=== PATIENT | female | born 1995 | race Caucasian/White ===

== ENCOUNTER 2022-12-28 09:35 | Outpatient (CLI) | payer BC, SELFPAY | END 2022-12-28 09:36 | disposition home or self-care (01) | PROVIDERS: PCP Family Medicine; Visit Provider Obstetrics & Gynecology | DX: O16.2 Unspecified maternal hypertension, second trimester (principal); Z3A.24 24 weeks gestation of pregnancy | CPT/HCPCS: 82565; 82570; 84156; 84450; 84460; 84520 ==

== ENCOUNTER 2023-02-22 12:18 | Outpatient (CLI) | payer BC, SELFPAY ==
--- NOTE | 2023-02-22 12:15 | CRLHL7_ITS ---
For Patients: As a result of the Century Cures Act, medical imaging exams and procedure reports are released immediately into your electronic medical record. You may view this report before your referring provider. If you have questions, please contact your health care provider. INDICATION: OBESITY, UNSPECIFIED MATERNAL HYPERTENSION TECHNIQUE: Real time sepulveda scale imaging of the fetus was performed. COMPARISON: 09/13/2022 FINDINGS: Sonographic imaging demonstrates a single living intrauterine gestation. Fetus demonstrates a regular cardiac rate of 149 beats per minute. Fetus has a vertex position. The placenta lies anteriorly. Amniotic fluid volume appears normal and there is a single deepest pocket of 4.0 cm. The estimated weight is 2117gm which lies at the 52nd %. BPD 75th percentile. HC 45th percentile. AC 44th percentile. FL 62nd percentile. The fetus was active and demonstrated normal breathing movements. There was normal flexion and extension of the trunk and extremities. IMPRESSION: Normal biophysical profile score 8/8. Sonographic gestational age 33 weeks 4 days and sonographic due date 04/08/2023. Sonographic age 6 days ahead of the clinical age. Estimated weight 52nd percentile. Abdominal circumference 44th percentile. Dictated by Dudley Gomez MD @ 02/22/2023 1:00:54 PM (Electronically Signed)
== END 2023-02-22 12:19 | disposition home or self-care (01) ==
LOC: US 12:19
PROVIDERS: PCP Family Medicine; Visit Provider Obstetrics & Gynecology
DX: O99.213 Obesity complicating pregnancy, third trimester (principal); O16.3 Unspecified maternal hypertension, third trimester; Z3A.33 33 weeks gestation of pregnancy
CPT/HCPCS: 76816; 76819

== ENCOUNTER 2023-03-17 09:19 | Outpatient (CLI) | payer BC, SELFPAY | END 2023-03-17 09:20 | disposition home or self-care (01) | LOC: NFLDREF 03-19 06:44 | PROVIDERS: PCP Family Medicine; Referring Provider Family Medicine; Visit Provider Advanced Practice Midwife | DX: O99.213 Obesity complicating pregnancy, third trimester (principal); Z3A.36 36 weeks gestation of pregnancy | CPT/HCPCS: 87081; 87653 ==

== ENCOUNTER 2023-03-23 16:31 | Inpatient (IN) | payer BC, SELFPAY ==
[2023-03-23 17:10] VITALS: BMI 53.0
[2023-03-23 17:14] LABS: Basophils Percent Auto 0.2 % (0.0-3.0); Eosinophils Percent Auto 1.4 % (0.0-7.0); Hematocrit 33.8 % (33.0-51.0); Hemoglobin* 10.9 gm/dL (12.0-16.0); Immature Granulocytes Pct Auto 0.3 %; Lymphocytes Percent Auto 15.2 % (20-44); Mean Corpuscular HGB Conc 32 gm/dL (32-36); Mean Corpuscular Hemoglobin 28 pg (26-34); Mean Corpuscular Volume 86 fL (80-100); Monocytes Percent Auto 6.2 % (0.0-11.0); Neutrophils Percent Auto 76.7 % (42.0-72.0); Platelet Count* 426 K/uL (140-440); RDW Coefficient of Variation % 14.1 % (11.5-15.5); Red Blood Count 3.93 m/uL (4.00-5.20)
[2023-03-23 17:17] VITALS: BP 123/67; PULSE 88; RESP 18; TEMP 37.2; O2SAT 99
[2023-03-23 17:20] VITALS: BP 123/67; PULSE 88
[2023-03-23 17:21] VITALS: PULSE 86; O2SAT 99
--- NOTE | 2023-03-23 17:47 | P.LDBA_ITS ---
Subjective History of Present Illness Time Seen by Provider: 17:47 Date Seen: 03/23/23 Narrative: HPI: Lizzie is a 27-year-old 1 para 0 at 36 and 6/7weeks gestation being admitted for induction of labor due to chronic hypertension with gestational exacerbation and oligohydramnios. Her admission history and physical was completed by Joslyn Stout MD on 03/23/2023. Her course has been complicated, see OB problem list. Her membranes are not ruptured. She reports no painful contractions. The baby has has been moving normally. OB PROBLEM LIST: XAVIER 04/14/23 by LMP c/w 1st trimester USN Spouse: Gerry. Son: Christopher. Baby: Girl! Misty (eye-rosalino) Transfer of care at 19 5/7 weeks gestation from [facility]. Records reviewed. * labs: Blood type A positive, antibody screen negative, Hgb 12.2, plts 425, rubella immune, RPR negative, HBsAg negative, HIV nonreactive, GC/chlamydia neg/neg, hep C negative, TSH 1.9, varicella zoster nonimmune, pap NIL, -HPV. * Ultrasound: 09/13/2022, 9 3/7 weeks, XAVIER 04/15/2023 (LMP EDC 04/14/2023) 1. Obesity (pre- BMI 53 kg/m2) * A1C: 5.1 * Early glucose screen: 129 * 28-week glucose screen: 126 (01/25/23) * Level 2 US and echo: 12/06/[facility], normal. Recommends growth ultrasound between 28 and 34 weeks gestation, and begin weekly testing at 34 weeks gestation. * Weekly BPP or NST beginning at 32 weeks: scheduled * Growth US between 32 and 36 weeks: Scheduled * Anesthesia consult: ordered 2. Scoliosis, s/p spine fusion (thoracic and upper lumbar) - told previously the fusion level is above level for epidural/spinal * Anesthesia consult: ordered, patient encouraged to get previous notes, films. Still waiting on records as of 03/17/23. 3. Elevated blood pressure in second trimester * Vital signs reviewed from previous records: 125/80, 120/80, 125/80. * [facility] labs obtained 12/28/2022: Platelets 374, BUN 4, creatinine 0.4, AST 42, ALT 21, urine P/C 0.0 * Begin daily home blood pressure monitoring * Repeat AST with 28-week labs: 17 (normal) * 03/23/2023: BPP 8/8, Vtx, SDP 2.5cm HORACIO 4.7cm. EFW: 2980 g, 6 lb 9 oz, 48%. BPD 42%, HC 34%, AC 68%, FL 18% * Patient sent for cervical ripening on 03/23/2023 followed by induction of labor on 03/24/2023 due to oligohydramnios and either gestational hypertension versus chronic hypertension with mildly elevated systolic blood pressure on 03/23/2023. She meets criteria for gestational hypertension. OBJECTIVE: GENERAL: Pleasant, , well groomed woman in no acute distress. VITAL SIGNS: Per electronic medical record: They are normal. HEART: Regular rate and rhythm without gallop, rub or murmur. CHEST: Clear to auscultation bilaterally. ABDOMEN: Gravid, nontender. EFM: Baseline 140 s, accelerations present, decelerations absent, moderate variability, reactive. Category 1 TOCO: Q 2-5 minutes, the patient is not feeling them. SVE: 1 cm/50 %/-3/mid/soft. Waldrop score 5. EXTREMITIES: No edema, cyanosis, clubbing or pain. ASSESSMENT: 27-year-old 1 para 0 at 36 and 6/7 weeks gestation admitted for induction of labor.. PLAN: 1. Cytotec 25 mcg vaginally every 3 hours, 5 doses. Followed by IV Pitocin per induction protocol. 2. AROM when able 3. GBS negative 4. Unsure if she wants anything for labor analgesia. 5. Blood type A+ 6. Serum preeclampsia labs: CBC w/o diff, AST, ALT, Creatinine, BUN. Urine P/C. 7. Dr. Yessica Oliveira will assume care at 7am on 03/24/2023. OB Exam Physical Exam Vital signs: Temp Pulse Resp BP Pulse Ox 99 F 88 18 123/67 99 03/23/23 17:17 03/23/23 17:20 03/23/23 17:17 03/23/23 17:20 03/23/23 17:21
[2023-03-23 18:00] LABS: Alanine Aminotransferase* 26 U/L (4-35); Aspartate Amino Transferase* 23 U/L (12-35); Blood Urea Nitrogen* 12 mg/dL (5-24); Creatinine* 0.4 mg/dL (0.5-1.5); Estimated Glomerular Filt Rate 140 ml/min
[2023-03-23 18:18] LABS: Slide Review Reflex No
[2023-03-23] MEDS: miSOPROStoL 25 MCG/0.25 TABLET VAGINAL ×2 (18:25→21:45)
[2023-03-23 21:34] VITALS: BP 126/61; PULSE 80; RESP 16; TEMP 37.1
[2023-03-23 21:35] VITALS: PULSE 86; O2SAT 98
[2023-03-23 22:16] LABS: Total Protein Urine 9 mg/dL
[2023-03-23 22:17] LABS: Creatinine Urine 123.2 mg/dL
[2023-03-23 22:56] VITALS: BP 128/67; PULSE 74; TEMP 37.1
[2023-03-24] VITALS (20 sets, daily range): BP systolic 104–148; BP diastolic 56–84; PULSE 62–85; RESP 16–18; TEMP 36.4–37.2; O2SAT 96–99
[2023-03-24] MEDS: miSOPROStoL 25 MCG/0.25 TABLET VAGINAL ×2 (01:56→04:59)
--- NOTE | 2023-03-24 08:27 | P.OBPN_ITS ---
Subjective Time Seen by Provider: 08:00 Date Seen: 03/24/23 Narrative: Doing well Objective Vital Signs: Last Vital Signs Temp 98.3 F 03/24/23 07:18 Pulse 75 03/24/23 07:18 Resp 18 03/24/23 07:18 BP 133/63 03/24/23 07:18 Pulse Ox 97 03/24/23 07:18 Pelvic Exam Dilation (cm): 3 Effacement (%): 75 Station: -1 Contractions Monitor mode: External Contraction pattern: Regular Contraction intensity: Moderate Assessment Assessment: induction ongoing Station: -1 Amniotic Membrane Status: SROM Status: Category l Heart Rate Baseline: 140 Penitentiary Variability: Moderate (6-25) Monitor Accelerations: Present Monitor Decelerations: Variable Maternal Status: Stable Plan Plan: 1. IOL ongoing, she is 3cm and with cervical check she SROM. Regular uterine contractions IV oxytocin has not been started, will recheck in about 4 hours if no significant progress will recommend Oxytocin. 2. NST category 1, sporadic variables, difficulty keeping patient on telemetry as she would like to ambulate, will continue trying. Needs continuous monitoring in the setting of hypertension. 3. CHTN, gestational exacerbation, blood pressures elevated but not on severity range. PreE labs upon admission normal. Will continue close monitoring. 4. GBS negative no need for antibiotic prophylaxis. 5. Patient would like to try unmedicated labor.
[2023-03-24] MEDS: LACTATED RINGERS 1000 ML 1,000 ML 999 ML IV ×2 (09:42→11:00)
[2023-03-24] MEDS: OXYTOCIN 30 unit/500 ML in NS 30 UNIT/500 ML BAG IVPB (14:20)
--- NOTE | 2023-03-24 16:48 | P.OBPN_ITS ---
Subjective Time Seen by Provider: 14:00 Date Seen: 03/24/23 Narrative: Okay, feeling contractions getting stronger. Objective Vital Signs: Last Vital Signs Temp 97.5 F L 03/24/23 16:42 Pulse 75 03/24/23 16:42 Resp 16 03/24/23 16:42 BP 137/75 03/24/23 16:42 Pulse Ox 99 03/24/23 11:39 Pelvic Exam Dilation (cm): 6-7 Effacement (%): 90 Station: -1,0 Contractions Monitor mode: Internal Contraction pattern: Regular Contraction intensity: Moderate Pitocin Rate (mU/min): 2 Assessment Assessment: induction ongoing Station: -1 Amniotic Membrane Status: SROM Status: Category ll Heart Rate Baseline: 140 Residential Variability: Moderate (6-25) Monitor Accelerations: Present Monitor Decelerations: Variable (some happen after the peak of the contraction, has had episodes of evident late decelerations but these improve with fluids and position changes. ) Maternal Status: Stable Plan Plan: Will continue IV Oxytocin judiciously in the setting of episodes of late decelerations, variables that are happening after the peak of the contraction. Labor has been progressing well, we were not able to start IV Oxytocin until 2pm today due to tracing concerns, but has always maintained moderate variability and accelerations and has responded to interventions. Will follow up closely.
[2023-03-24] MEDS: OXYTOCIN 30 unit/500 ML in NS 30 UNIT/500 ML BAG 300 UNIT IVPB (18:03)
[2023-03-24] MEDS: LIDOCAINE 1 % PF 30 ML INJECTION (18:08)
--- NOTE | 2023-03-24 18:30 | W.PM.OBVAGDE ---
OB Procedure Vag Delivery Mother Details Mother Details: The patient is a 27 year-old, 2, Para 1, admitted on 03/23/23 at 36 6/7 weeks gestation for IOL in the setting of CHTN with gestational exacerbation. IOL started per Cytotec protocol, SROM this morning during cervical check, then started IV oxytocin, due to maternal body habitus internal monitors were utilized, tracing concerning during certain points due to late decelerations that resolved with position changes and hydration. Blood pressures remained controlled during laboring process. : 2 Para: 1 Weeks Gestation: 37 Admission Date: 03/23/23 Additional Details Amniotic Membrane Status: SROM Amniotic Membrane Rupture Date: 03/24/23 Amniotic Membrane Rupture Time: 08:00 Amniotic Membrane Fluid Description: Clear Analgesia/Anesthesia Type: Nitrous Oxide Waterbirth: No Pitcoin: Yes Intrapartal Events: Labor Induction Induction Method: per misoprostol protocol and per pitocin protocol Delivery augmentation: pitocin Labor Onset: 16:00 Complete: 17:51 Pushin:58 Heart: heart tones during second stage were category 2. Had a deep variable, nurse checked cervix found her 9cm and right after this time patient started involuntarily pushing and rapid descent of baby noted with a deep deceleration and head was noted to be and with the next push delivered baby. Delivery Details Delivery Date: 03/24/23 Delivery Time: 18:01 Route of delivery: Gender: Female Infant Viability: Alive; Heart Rate Present Position at Delivery: OA Delivery Details: Delivered over intact perineum via spontaneous vaginal delivery. was placed on maternal abdomen.? Cord was clamped and cut after a 30-60 second delay. Nose and mouth were bulb suctioned.? weight pending. 1 Minute Interval Total Score: 8 5 Minute Interval Total Score: 9 Additional Details Shoulder Dystocia: No Placenta Delivery Time: 18:04 Placental Delivery Description: Spontaneous Delivery repair: Vicryl Procedure Done: Global Blood Loss: 100 Laceration: Perineal - 2nd Degree Episiotomy Description: None Blood Loss Measurement Type: QBL Bakri Used: No Sponge/Need Count Correct: Yes Cord Vessel Description: 3 Vessels Event Summary Status: Mother and were stable after delivery.
[2023-03-25 05:20] VITALS: BP 136/78; PULSE 75; RESP 16; TEMP 36.6; O2SAT 98
[2023-03-25 07:27] LABS: Hemoglobin* 10.4 gm/dL (12.0-16.0)
[2023-03-25 09:59] VITALS: BP 127/82; PULSE 80; RESP 16; O2SAT 98
[2023-03-25] MEDS: DOCUSATE SODIUM 100 MG CAPSULE PO (09:59)
--- NOTE | 2023-03-25 10:22 | PM.OBPNVD1 ---
OB - PN:Subj Subjective Date Seen: 03/25/23 Interval history: The patient is a 27 year-old, 2, now Para 2001, admitted on 03/23/23 at 36 6/7 weeks gestation for IOL in the setting of CHTN with gestational exacerbation. IOL started per Cytotec protocol, SROM, then IV oxytocin. She proceeded to a normal spontaneous vaginal delivery of a viable female . She needed repair of a 2nd degree perineal laceration with the delivery. Patient comments OB post-: no complaints status: OB - PN: Obj Exam Physical Exam: Vital signs: Temp Pulse Resp BP Pulse Ox O2 Del Method 97.9 F 80 16 127/82 98 Room Air 03/25/23 05:20 03/25/23 09:59 03/25/23 09:59 03/25/23 09:59 03/25/23 09:59 03/25/23 09:59 Constitutional: Constitutional: no acute distress and cooperative Routine Respiratory Exam: Respiratory: Present CTA bilaterally Routine Cardiovascular Exam: Cardiovascular: Present RRR Routine Abdominal Exam: Abdominal: Present soft; Absent tenderness Fundus: Present firm Routine Extremities Exam: Extremities: Present full ROM and normal inspection; Absent calf tenderness Routine Neurological Exam: Neurological: Present alert and oriented X3 Routine Psychiatric Exam: Psychiatric: Present normal affect OB - PN: Obj Data Labs Labs: Laboratory Results - last 24 hr 03/25/23 07:14 Hgb 10.4 L OB - PN: A/P Delivery Assessment and Plan (1) Status post normal vaginal delivery: Status: Acute Plan day: 1 Plan: routine care
[2023-03-25 14:15] VITALS: BP 119/80; PULSE 89; RESP 16; TEMP 36.4; O2SAT 98
[2023-03-25 17:38] VITALS: BP 133/97; PULSE 73; RESP 18; TEMP 36.6; O2SAT 97
[2023-03-25 20:00] VITALS: BP 124/84; PULSE 82; RESP 18; TEMP 36.7; O2SAT 97
[2023-03-26 00:47] VITALS: BP 120/85; PULSE 74; RESP 18; TEMP 36.6; O2SAT 97
[2023-03-26 04:05] VITALS: BP 134/83; PULSE 78; RESP 18; O2SAT 100
[2023-03-26 08:00] VITALS: BP 136/82; PULSE 86; RESP 18; TEMP 36.6; O2SAT 98
--- NOTE | 2023-03-26 09:43 | P.DS_ITS ---
DS: Providers Provider Date Seen: 03/26/23 Date of admission: 03/23/23 16:31 Primary care physician: Svetlana Jimenez MD Admitting Clinician: Yessica Torres MD Attending Physician on discharge: Mely Quijano MD Date of Discharge: 03/26/23 DS: Diagnosis Discharge Diagnosis (1) Status post normal vaginal delivery: Status: Acute Exam Const: Vital Signs, click to edit/add: Vital Signs - 24 hr 03/25/23 09:59 03/25/23 14:15 03/25/23 17:38 Temperature 97.5 F L 98 F Pulse Rate [Pulse Oximeter] 80 89 73 Respiratory Rate 16 16 18 Blood Pressure [Le ft Arm] 127/82 119/80 133/97 H Pulse Oximetry 98 98 97 Oxygen Delivery Me thod Room Air Room Air 03/25/23 20:00 03/26/23 00:47 03/26/23 04:05 Temperature 98.0 F 97.9 F Pulse Rate [Pulse Oximeter] 82 74 78 Respiratory Rate 18 18 18 Blood Pressure [Le ft Arm] 124/84 120/85 134/83 Pulse Oximetry 97 97 100 Oxygen Delivery Me thod Room Air Room Air Room Air 03/26/23 08:00 Temperature 98 F Pulse Rate [Pulse Oximeter] 86 Respiratory Rate 18 Blood Pressure [Le ft Arm] 136/82 Pulse Oximetry 98 Oxygen Delivery Me thod Room Air Documenting provider has reviewed patient's vital signs: yes Common normals: no apparent distress, oriented x3 and alert General appearance: cooperative Resp: Common normals: normal respiratory effort Cardio: Common normals: regular rate Rate: regular rate GI: Common normals: soft to palpation Palpation: soft : Uterus: U/2 Lochia: scant Uterus palpation: uterus nontender Extremity: Common normals: normal to inspection Neuro: Common normals: oriented x3 Sensorium/orientation: alert OB - DS: Summary Hospital Course Hospital Course: The patient is a 27 year old G2 now P2002 that was admitted to the Center on 03/23/23 for labor induction at 37 weeks gestation due to chronic hyp ertension with gestational exacerbation and oligohydramnios. She had an uncomplicated vaginal delivery. She delivered a viable female infant. She is breast feeding. the patient has done well. Peripartum Data Infant delivery method: Vaginal Laceration description: Perineal - 2nd Degree complications: none [place] Infant Gender: Female Discharge Plan: Home Status at Discharge Overall status at discharge: patient is back to baseline Time Spent with Patient Time attestation: Total time spent providing and/or coordinating discharge services: Time spent: Less than 30 minutes Discharge Plan Discharge Disposition: Home, Self-Care Date of Admission: 03/23/23 16:31 Attending Provider on Discharge: Mely Quijano Primary Care Provider: Svetlana Jimenez Condition: Stable Anticipated Discharge Date/Time: 03/26/23 09:53 Discharge Medications: New docusate sodium 100 mg Capsule 100 mg PO DAILY Qty: 30 0RF ibuprofen 600 mg Tablet 600 mg PO Q6H PRNQty: 30 0RF Continued PNV,[id number] 27 mg-0.4 mg- 1.13 mg(FA 1mg) capsule 1 cap PO DAILY calcium carbonate-vitamin D3 600 mg-5 mcg (200 unit) tablet 1 tab PO QDAY ferrous sulfate [FeroSul] 325 mg (65 mg iron) tablet 325 mg PO QDAY Qty: 90 0RF Discharge Orders: Discharge Order (Routine); Ordered 03/26/23 Ordered By: Mely Quijano Discharge Diet: Regular Follow Up Appointments: Svetlana Jimenez MD [Primary Care Provider] - Forms: [facility] Info Instructions
== END 2023-03-26 13:21 | disposition home or self-care (01) | DRG 560 ==
PROVIDERS: Obstetrics & Gynecology; Admitting Provider Obstetrics & Gynecology; PCP Family Medicine; Visit Provider Obstetrics & Gynecology
DX: O10.92 Unspecified pre-existing hypertension complicating childbirth (principal); O13.4 Gestational [pregnancy-induced] hypertension without significant proteinuria, complicating childbirth; O41.03X0 Oligohydramnios, third trimester, not applicable or unspecified; O99.214 Obesity complicating childbirth; E66.9 Obesity, unspecified; O70.1 Second degree perineal laceration during delivery; Z3A.36 36 weeks gestation of pregnancy; Z37.0 Single live birth
CPT/HCPCS: 36415; 59200; 76816; 76819; 82565; 82570; 83735; 84156; 84450; 84460; 84520; 85018; 85025; 85027; 86850; 86900; 86901; 88307; A9270; J2001; J7120

== ENCOUNTER 2023-04-17 15:11 | Outpatient (CLI) | payer BC, SELFPAY ==
--- NOTE | 2023-04-17 17:00 | P.LACCB_ITS ---
Consult Note - Mom Date of Visit Date of visit: 04/17/23 crop consultant: Maite Reyes Visit Code: Visit Patient's Information Phone number: [phone] : 2 Para: 2 Allergies morphine Allergy (Intermediate, Verified 04/12/23 09:37) Hallucinating Mother's Medical History: CHTN, BMI>30 Delivery Information Delivery type: Vaginal Weeks Gestation: 37.0 Gestational Age: AGA Weight: 2.73 kg Discharge Weight: 2.574 kg Baby's Information Baby's Age at Visit: 3 weeks Baby's Provider or Clinic: Dr. Taylor Jaundice: No Reason for Consult Reason for Consult: concern for transfer and supply, hx of slow weight gain so was supplementing Past Experience Past Experience: No Current Frequency of Day Feedings: about every two hours Frequency of Night Feedings: every 3 - 4 hours Both Breasts: Yes Suck: not very aggressive, sleepy at breast Latch: fairly wide Length of Time: 20 - 30 mintues total Pumping Pumping: Yes (5 - 6 times/24 hours) Quantity Pumped: 1 - 1.5 oz total each time Supplementing EMB Supplement: Yes (baby takes about 1.5 oz EBM or formula after every nursing session) Formula Supplement: Yes Baby Elimination Number of Wet Diapers a Day: almost every feeding Number of BM a Day: 1 - 2 times/day; yellow and seedy Breast/Nipple Condition Breast Information: WNL Maternal Nipple Condition - Left: Common Nipple Maternal Nipple Condition - Right: Common Nipple Onsite Pre-Feed weight: 3.3 kg Post-Feed weight: 3.324 kg Milk Transferred (mL): 24 Assessments/Interventions Assessments/Interventions: Met with mom and this now 3 week old ex- term AGA baby for consult. Mom reports she was instructed to supplement baby at her NB visit for a weight loss of almost 10% and she just continued with that even as baby's weight began to improve. She's now concerned about her supply and states baby is now sleepy or lazy at the breast and seems to prefer the bottle. Mom is also worried about her supply stating she pumps 5 - 6 times/day and only gets 1 - 1.5 oz total each time. Baby nurses every 2 - 4 hours for 20 - 30 minutes, mom offers both sides. She's supplementing with about 1.5 oz EBM/formula after most feedings. Breasts WNL- symmetrical with rounded lower quadrants, intramammary distance is < 1.5 inches. Nipples are everted and don't flatten or retract on compression, no damage noted. Mom with hx of CHTN and has a BMI > 30. She reports breast changes during . Baby has gained 47 grams/day since her last visit on 04/07/23. Mom denies any caput/cephalohematoma at delivery. She reports baby has equal ROM when turning her head and she moves her extremities equally as well. Baby's palate is WNL. Her upper frenulum may be a little tight as it's somewhat difficult to flip her upper lip. She doesn't have a very aggressive suck on a finger but her tongue extends past the gumline; no canoeing was noted when baby moved her tongue laterally. The lower frenulum wasn't visualized. Mom latched baby in the football hold on both sides. She had her in a great position and with some verbal coaching was able to aim her nipple more for baby's nose and bring her in quickly when she opened wide. The latch was fairly wide, some improvement when pulling down on the chin. Baby nursed a few minutes, then got sleepy. Mom did a good job trying to keep her awake and interested, including switching her between sides a few times. After about a 25 minute feeding, baby transferred 24 ml. She was still hungry so mom offered 2 oz formula with paced feeding. Mom was shown the tug of war exercise to see if this helps strengthen baby's suck. She was also measured and a smaller flange size suggested. Plan: 1. Continue to breastfeed on demand. Use the suggestions given today in clinic to get a wider latch and work to keep baby awake and active at the breast. OK to keep nursing sessions no more than 30 minutes if baby is sleepy. 2. Reviewed baby will probably need 2 - 3 oz after most feedings, watch baby's c ues. 3. Suggested mom pump 3 - 4 times/day as she reports it's getting a little much to pump 5 - 6 times/day. Suggested she incorporate breast massage and/or hand expression into her pumping to help with increasing her supply (watch firstdroplets video). 4. As mom has no contraindications, reviewed herbs she could try to boost her supply. 5. Suggested she try the tug of war exercise 3 - 5 times/day. 6. Handouts given on flange size, herbs, stretches for back and chest, and Baby Stop. 7. Will f/u with PCP for a 2 month [facility] and I will call on 04/21/23 to see how things are going. Meds Home Medications and Allergies Home Medications Medication Instructions Recorded Confirmed Type PNV,[id number] 27 mg-FA 0.4 1 cap PO DAILY 11/23/22 04/12/23 History mg-Lmfolat 1.13 mg(FA 1mg)-dha capsule calcium carbonate 600 mg-vitamin 1 tab PO QDAY 11/23/22 04/12/23 History D3 5 mcg (200 unit) tablet Allergies Allergy/AdvReac Type Severity Reaction Status Date / Time morphine Allergy Intermediate Hallucinati Verified 04/12/23 09:37 ng
== END 2023-04-17 15:12 | disposition home or self-care (01) ==
PROVIDERS: PCP Family Medicine; Visit Provider Obstetrics & Gynecology
DX: Z39.1 Encounter for care and examination of lactating mother (principal)
CPT/HCPCS: 99211